=== PATIENT | female | born 1975 | race Caucasian/White ===

== ENCOUNTER 2017-01-28 22:19 | Emergency (ER) | payer OTHER ==
[2017-01-28 22:36] VITALS: RESP 18
--- NOTE | 2017-01-28 23:05 | ED ---
Upper Extremity HPI - General Chief Complaint: Extremity Injury, Upper Stated Complaint: Fall/Wrist Injury Time Seen by Provider: 01/28/17 22:40 Source: patient, RN notes reviewed Mode of arrival: wheelchair Limitations: no limitations - History of Present Illness Initial Comments: This is a 41-year-old female who presents to the emergency department with chief complaint of left wrist injury. Patient states that approximately one hour prior to arrival she was playing football in her backyard with her dog. She states that she lost her balance and fell backwards landing on her left wrist. She applied a home splint consisting of a board of wood and towels. She states that the pain is localized to the radial aspect of her wrist with radiation up to the elbow. Denies any other injury. Denies fever, chills, chest pain, shortness of breath, abdominal pain, nausea or vomiting, constipation or diarrhea, dysuria or hematuria, numbness or tingling, headache or vision changes. Place: outdoors - Related Data Home Medications Medication Instructions Recorded Confirmed Dm/Acetaminophen/Doxylamine [Vicks 30 ml PO HS PRN 01/28/17 01/28/17 Nyquil Cold & Flu Liquid] Multivitamins, Thera [Multivitamin 1 tab PO DAILY 01/28/17 01/28/17 (formulary)] Phenylephrine/Dm/Acetaminop/GG 30 ml PO DAILY PRN 01/28/17 01/28/17 [Vicks Dayquil Severe Cold-Flu] Pseudoephedrine HCl [Sudafed] 30 - 60 mg PO Q6HR PRN 01/28/17 01/28/17 Previous Rx's Medication Instructions Recorded Ibuprofen 600 mg PO Q6HR #30 tablet 01/29/17 Allergies Allergy/AdvReac Type Severity Reaction Status Date / Time No Known Allergies Allergy Verified 01/28/17 22:35 Review of Systems ROS Statement: Those systems with pertinent positive or pertinent negative responses have been documented in the HPI. ROS Other: All systems not noted in ROS Statement are negative. Past Medical History Past Medical History: No Reported History History of Any Multi-Drug Resistant Organisms: None Reported Past Surgical History: No Surgical Hx Reported Past Psychological History: No Psychological Hx Reported Smoking Status: Never smoker Past Alcohol Use History: Occasional Past Drug Use History: None Reported General Exam - General Exam Comments Initial Comments: General: Awake and alert, well-developed; in no apparent distress. HEENT: Head atraumatic, normocephalic. Pupils are equal, round and reactive to light. Extraocular movements intact. Oropharynx moist without erythema or exudate. Neck: Supple. Normal ROM. Cardiovascular: Regular rate and rhythm. No murmurs, rubs or gallops. Chest symmetrical. Respiratory: Lungs clear to auscultation bilaterally. No wheezes, rales or rhonchi. Normal respiratory effort with no use of accessory muscles. Musculoskeletal: Patient's left arm is supported on a board of wood. There is an obvious deformity of left wrist with radial deviation. Localized swelling to radial left wrist. No snuffbox tenderness. Patient has limited range of motion of the left wrist due to pain. Skin: [place], warm and dry without rashes or lesions. Neurological: Alert and oriented x3. CN II-XII grossly intact. Speech is fluent and answers are appropriate. No focal neuro deficits. Psychiatric: Normal mood and affect. No overt signs of depression or anxiety noted. Limitations: no limitations Course Vital Signs 01/28/17 22:32 Temperature 98.6 F Pulse Rate 71 Respiratory 18 Rate Blood Pressure 142/89 O2 Sat by Pulse 98 Oximetry Procedures - Orthopedic Splinting/Casting Injury #1 Side: left Upper Extremity Injury Location: wrist Upper Extremity Immobilizer: volar splint, synthetic pre-padded splint Additional Comments: short arm OCL left wrist. Medical Decision Making - Medical Decision Making this is a 41-year-old female who presented to the emergency department with chief complaint of left wrist injury. X-ray revealed a mildly displaced and comminuted distal radial fracture. A volar splint was applied and patient tolerated well without complication. She is neurovascularly intact. Patient will be discharged home with referral to orthopedics. She is in agreement with plan and voices understanding. All questions were answered. - Radiology Data Radiology results: report reviewed Left wrist x-ray impression: 1. Comminuted and mildly displaced distal left radial fracture with intra-articular extension. 2. Mild widening of the scapholunate interspace. Disposition Clinical Impression: Distal radial fracture Disposition: HOME SELF-CARE Condition: Good Instructions: Arm Fracture in Adults (ED) Additional Instructions: Please follow up with Dr. Joy, orthopedics tomorrow morning. Please take medications as prescribed. Please follow up with primary care provider within 1- 2 days. Return to emergency department if symptoms should worsen or any concerns arise. Prescriptions: Ibuprofen 600 mg PO Q6HR #30 tablet Referrals: None,Stated [Primary Care Provider] - 1-2 days Yang Joy MD [STAFF PHYSICIAN] - 1-2 days Time of Disposition: 00:13
--- NOTE | 2017-01-28 23:12 | XR ---
EXAM: XR Left Forearm, 2 Views CLINICAL HISTORY: Reason: Pain TECHNIQUE: Frontal and lateral views of the left forearm. COMPARISON: Current left wrist series, dictated separately. FINDINGS: Bones/joints: Comminuted mildly displaced distal left radial fracture with intra-articular extension. The ulna appears intact. No evidence of dislocation about the wrist or elbow. Soft tissues: Distal forearm/wrist soft tissue swelling. IMPRESSION: Comminuted and mildly displaced distal left radial fracture with intra- articular extension.
--- NOTE | 2017-01-28 23:14 | XR ---
EXAM: XR Left Wrist, 2 Views CLINICAL HISTORY: Reason: Pain TECHNIQUE: Frontal and lateral views of the left wrist. COMPARISON: Current left forearm series, dictated separately. FINDINGS: Bones/joints: Again, there is a comminuted and mildly displaced distal left radial fracture with intra-articular extension. The distal ulna appears intact, as does alignment. There is mild widening of the scapholunate space which may reflect the presence of ligamentous injury/disruption, of indeterminate age. Soft tissues: Distal forearm/wrist soft tissue swelling. No radiopaque foreign body. IMPRESSION: 1. Comminuted and mildly displaced distal left radial fracture with intra-articular extension. 2. Mild widening of the scapholunate interspace, as above.
[2017-01-29] MEDS ORDERED: IBUPROFEN 600 MG TAB PO STA (00:12)
[2017-01-29 00:31] VITALS: BP 144/87; PULSE 88; TEMP 97.8
== END 2017-01-29 00:31 | disposition home or self-care (01) ==
LOC: EC 22:19
DX: S52.502A Unspecified fracture of the lower end of left radius, initial encounter for closed fracture (principal); Z79.899 Other long term (current) drug therapy; W01.0XXA Fall on same level from slipping, tripping and stumbling without subsequent striking against object, initial encounter; Y93.61 Activity, american tackle football; Y92.89 Other specified places as the place of occurrence of the external cause
CPT/HCPCS: 29125; 99283

== ENCOUNTER 2017-01-30 15:00 | Day surgery (SDC) | payer OTHER ==
[2017-01-29 14:39] VITALS: BMI 32.1
[~2017-01-30 15:00] MED LIST: DEXAMETHASONE SOD PHOSPHATE 10 MG/ML 1 ML VIAL IV ONE; HYDROmorphone 0.5 MG/0.5 ML SYRINGE IVP PRN; LACTATED RINGERS 1,000 ML IV SCH; LIDOCAINE 1% 20 ML VIAL (10MG/ML) FOR IV START INTRADERMA PRN; MIDAZOLAM 2 MG/2 ML VIAL IV PRN; ONDANSETRON 4 MG/2 ML VIAL IVP ONE; SCOPOLAMINE 1.5MG/72HR PATCH TRANSDERM ONE; ceFAZolin IN SWFI 2 GM/20 ML SYRINGE IVP ONE
[2017-01-30] MEDS ORDERED: ONDANSETRON 4 MG/2 ML VIAL ONE (16:54)
[2017-01-30] MEDS ORDERED: PROPOFOL 10 MG/ML 20 ML VIAL IV ONE (16:54)
[2017-01-30] MEDS ORDERED: ceFAZolin 1,000 MG VIAL ONE (16:54)
[2017-01-30] MEDS ORDERED: fentaNYL (PF) 50 MCG/ML 2 ML AMP ONE ×2 (16:54)
[2017-01-30] MEDS ORDERED: MIDAZOLAM 2 MG/2 ML VIAL ONE ×2 (16:54)
[2017-01-30] MEDS ORDERED: LIDOCAINE 1% INJ 10MG/ML (20 ML MDV) ONE (16:54)
[2017-01-30] MEDS ORDERED: KETAMINE 10 MG/ML 20 ML VIAL ONE (16:54)
[2017-01-30] MEDS ORDERED: DEXAMETHASONE SOD PHOS (MDV) 100 MG/10 ML VIAL ONE (16:54)
[2017-01-30] MEDS ORDERED: GLYCOPYRROLATE 0.2 MG/ML 2 ML VIAL ONE (16:54)
[2017-01-30] MEDS ORDERED: SCOPOLAMINE 1.5MG/72HR PATCH TRANSDERM ONE (16:54)
--- NOTE | 2017-01-31 08:04 | P.ONQ ---
Anesthesiology Proc Note - PNB - Peripheral Nerve Block Performed Left Axillary Indication: Acute Post-Operative Pain, Requested by physician (Dr Jamison Mchugh ) Sedation Type: Sedate with meaningful contact maintained Preparation: Sterile Prep Position: Supine Catheter: None Needle Types: Other (see comment) (Jason) Needle Size: 50mm (2") Needle Gauge: 20 Technique: Ultrasound (0.5% Ropivacaine 15cc, 1% lidocaine 15cc with1:100,000 epi) Blood Aspirated: No Pain Paresthesia on Injection Noted: No Resistance on Injection: Normal Events: Uneventful and Well Tolerated
--- NOTE | 2017-01-31 09:21 | XR ---
Exam: X-ray left wrist limited HISTORY: Left radius fracture. 2 images were sent to PACS which demonstrated operative intervention with a plate and multiple screws in the distal radius. Fluoroscopy time was 19 seconds. Please see the operative report for reference .
--- NOTE | 2017-01-31 09:22 | FL ---
Exam: Intraoperative fluoroscopy of the left wrist HISTORY: Left distal radius fracture. Fluoroscopic assistance was provided in the operating room for purposes of intervention in the left w rist. Fluoroscopy time: 19 seconds. 2 images were sent to PACS which demonstrated plate and multiple screws in the left radius. Please se e the operative report for reference.
--- NOTE | 2017-02-06 08:24 | OP ---
OPERATIVE REPORT DATE OF PROCEDURE: 01/30/2017. PREOPERATIVE DIAGNOSIS: Comminuted intra-articular fracture distal left radius with displacement and instability (greater than 3 fragments). FINAL DIAGNOSIS: Comminuted intra-articular fracture distal left radius with displacement and instability (greater than 3 fragments). PROCEDURE: Open reduction and internal fixation distal left radius with a volar plate. GROSS PATHOLOGY: The fracture was able to be reduced adequately in securely with a volar plate. The articular surface at the radial styloid was difficult to maintain its anatomy due to comminution. The radial length and volar tilt were re-established well. Radial inclination was difficult to realign and maintain anatomically but parameters were considered acceptable. PROCEDURE: This 41-year-old was taken to the operative suite, given IV sedation to supplement an axillary block. Her hand was prepped and draped in the usual manner. It was elevated, exsanguinated and cuff was inflated to 250 mmHg. A volar longitudinal radial incision with a distal zigzag extension was created over the left wrist. Dissection taken through skin and subcutaneous tissue with supplement of 4.5 loupe magnification. Exposure along the radial aspect of the flexor carpi radialis was performed. An extended FCR approach was used. The volar fascia of the forearm was incised and exposure was taken bluntly down to the pronator quadratus which was incised off the radius. The volar aspect of the radius was thus exposed. The brachioradialis was released. The fracture was reduced under direct vision manually. The volar plate was applied in the usual manner with distal smooth pegs, locked in to place and the proximal part of the plate secured to the distal radius. Procedure was performed under C-arm fluoroscopy. At the completion the procedure, the wrist was placed through a range of motion, which was satisfactory. Distal ulna was stable. The wound was then thoroughly irrigated. Tourniquet was released. The skin was closed with subcutaneous 3-0 Vicryl followed by running 5-0 nylon suture. Soft bulky dressing was applied with a volar splint. MARKETING DATABASE ANALYST: Brigitte Philippe. AMI / ANNELIESE: [id number] /
== END 2017-01-30 18:10 | disposition home or self-care (01) ==
LOC: OR 15:00
PROVIDERS: ATTEND Orthopaedic Surgery Hand Surgery
DX: S52.572A Other intraarticular fracture of lower end of left radius, initial encounter for closed fracture (principal); W18.39XA Other fall on same level, initial encounter; Z79.1 Long term (current) use of non-steroidal anti-inflammatories (NSAID); Z79.891 Long term (current) use of opiate analgesic
CPT/HCPCS: 25609; 81025; 76000; 73100; C1713; J2250; J2405; J0690; J2001; J3010; J1100; J2704